=== PATIENT | female | born 1990 | race Two or more races ===

== ENCOUNTER 2017-05-05 19:28 | Inpatient (IN) | payer OTHER, BC ==
[2017-05-05 19:57] LABS: URINE HCG POC HCG NEGATIVE (Negative)
[2017-05-05 21:06] LABS: ADD MAN DIFF? NO
[2017-05-05 21:10] LABS: BILIRUBIN,URINE MODERATE (NEG); CLARITY,URINE CLEAR; COLOR,URINE YELLOW; GLUCOSE,URINE NEGATIVE (NEG); NITRITE,URINE NEGATIVE (NEG); PROTEIN,URINE 30 mg/dL (NEG-TRACE); UROBILINOGEN,URINE 0.2 mg/dL (0.2 mg/dL)
[2017-05-05 21:13] LABS: BASO % 0 % (0-3); EOS # 0.1 x10^3/uL (0.0-0.7); EOS % 1 % (0-3); HEMATOCRIT 41.5 % (36.0-47.0); HEMOGLOBIN 13.6 g/dL (12.0-15.5); LYMPH # 2.8 x10^3/uL (1.0-4.8); LYMPH % 43 % (24-48); MEAN CORPUSCULAR HEMOGLOBIN 28 pg (25-35); MEAN CORPUSCULAR HGB CONC 33 g/dL (31-37); MEAN CORPUSCULAR VOLUME 86 fL (79-100); MONO # 0.3 x10^3/uL (0.0-1.1); MONO % 5 % (0-9); NEUT # 3.4 x10^3uL (1.8-7.7); NEUT % 51 % (31-73); PLATELET COUNT 222 x10^3/uL (140-400); RED BLOOD COUNT 4.82 x10^6/uL (3.50-5.40); RED CELL DISTRIBUTION WIDTH 12.6 % (11.5-14.5); WHITE BLOOD COUNT 6.6 x10^3/uL (4.0-11.0)
[2017-05-05 21:21] LABS: ANION GAP 20 (6-14); BLOOD UREA NITROGEN 5 mg/dL (7-20); BUN/CREATININE RATIO 6 (6-20); CALCIUM 9.6 mg/dL (8.5-10.1); CARBON DIOXIDE 19 mmol/L (21-32); CHLORIDE 100 mmol/L (98-107); CREATININE 0.8 mg/dL (0.6-1.0); GFR 88.1; GLUCOSE 76 mg/dL (70-99); POTASSIUM 3.7 mmol/L (3.5-5.1); SODIUM 139 mmol/L (136-145)
[2017-05-05 21:27] LABS: ALBUMIN 4.3 g/dL (3.4-5.0); ALK PHOS 202 U/L (46-116); ALT (SGPT) 211 U/L (14-59); AST (SGOT) 97 U/L (15-37); DIRECT BILIRUBIN 0.2 mg/dL (0.0-0.2); LIPASE 156 U/L (73-393); TOTAL BILIRUBIN 0.6 mg/dL (0.2-1.0); TOTAL PROTEIN 8.8 g/dL (6.4-8.2)
[2017-05-05 21:34] LABS: NEG OBC SER NEG; POS OBC SER POS; PREG TEST PT QUAL NEGATIVE (NEG)
[2017-05-05] MEDS: IV NORMAL SALINE 1000ML BAG 1,000 ML IV (21:42)
[2017-05-05] MEDS: ONDANSETRON PF 4 MG/2 ML VIAL. IV (21:42)
[2017-05-05] MEDS: HYDROmorphone 2 MG/ML VIAL IV (21:43)
[2017-05-05 21:47] LABS: BACTERIA,URINE FEW /HPF (0-FEW); SQUAMOUS EPITHELIAL CELL,UR MOD /LPF
[2017-05-05 21:48] LABS: HYALINE CASTS, URINE MODERATE /HPF
[2017-05-05] MEDS ORDERED: MORPHINE SULFATE 2 MG/ML DISP.SYRIN. IV (22:45)
[2017-05-06] MEDS: POTASSIUM CL 20MEQ D5-0.45NACL 1,000 ML IV ×2 (00:34→11:45)
[2017-05-06] MEDS: IV NORMAL SALINE 1000ML BAG 1,000 ML IV (09:00)
[2017-05-06 09:55] LABS: ADD MAN DIFF? NO
[2017-05-06 09:57] LABS: BASO % 1 % (0-3); EOS # 0.1 x10^3/uL (0.0-0.7); EOS % 2 % (0-3); HEMATOCRIT 35.8 % (36.0-47.0); HEMOGLOBIN 11.6 g/dL (12.0-15.5); LYMPH % 53 % (24-48); MEAN CORPUSCULAR HEMOGLOBIN 28 pg (25-35); MEAN CORPUSCULAR HGB CONC 33 g/dL (31-37); MEAN CORPUSCULAR VOLUME 86 fL (79-100); MONO # 0.3 x10^3/uL (0.0-1.1); MONO % 7 % (0-9); NEUT # 1.4 x10^3uL (1.8-7.7); NEUT % 37 % (31-73); PLATELET COUNT 165 x10^3/uL (140-400); RED BLOOD COUNT 4.18 x10^6/uL (3.50-5.40); RED CELL DISTRIBUTION WIDTH 12.1 % (11.5-14.5); WHITE BLOOD COUNT 3.8 x10^3/uL (4.0-11.0)
[2017-05-06 10:25] LABS: ALBUMIN 3.4 g/dL (3.4-5.0); ALBUMIN/GLOBULIN RATIO 0.9 (1.0-1.7); ALK PHOS 153 U/L (46-116); ALT (SGPT) 145 U/L (14-59); ANION GAP 13 (6-14); AST (SGOT) 54 U/L (15-37); BLOOD UREA NITROGEN 3 mg/dL (7-20); BUN/CREATININE RATIO 4 (6-20); CALCIUM 8.7 mg/dL (8.5-10.1); CARBON DIOXIDE 22 mmol/L (21-32); CHLORIDE 106 mmol/L (98-107); CREATININE 0.7 mg/dL (0.6-1.0); GAMMA GLUTAMYL TRANSPEPTIDASE 100 U/L (5-55); GFR 102.8; GLUCOSE 100 mg/dL (70-99); POTASSIUM 4.1 mmol/L (3.5-5.1); SODIUM 141 mmol/L (136-145); TOTAL BILIRUBIN 0.6 mg/dL (0.2-1.0); TOTAL PROTEIN 7.1 g/dL (6.4-8.2)
[2017-05-06] MEDS: LEVOTHYROXINE 50 MCG TABLET PO (11:27)
[2017-05-06] MEDS: ONDANSETRON PF 4 MG/2 ML VIAL. IV ×2 (11:46→21:16)
[2017-05-06] MEDS: MORPHINE SULFATE 2 MG/ML DISP.SYRIN. IV ×3 (11:55→21:15)
[2017-05-06] MEDS: LIDO:MAALOX:DONNATAL 1:1:1 15 ML SINGLE DOSE SWSW (17:26)
[2017-05-06] MEDS: PANTOPRAZOLE IV PUSH 40 MG VIAL. IVP (17:26)
[2017-05-06] MEDS ORDERED: MAG HYDROX/ALUMINUM HYD/SIMETH 30 ML ORAL.SUSP PO (22:15)
[2017-05-06] MEDS: CALCIUM CARBONATE 500 MG TAB.CHEW PO (23:09)
[2017-05-07] MEDS: POTASSIUM CL 20MEQ D5-0.45NACL 1,000 ML IV ×3 (00:59→16:00)
[2017-05-07] MEDS: LEVOTHYROXINE 50 MCG TABLET PO (06:07)
[2017-05-07 06:33] LABS: ALBUMIN 3.1 g/dL (3.4-5.0); ALK PHOS 125 U/L (46-116); ALT (SGPT) 105 U/L (14-59); AST (SGOT) 32 U/L (15-37); DIRECT BILIRUBIN 0.2 mg/dL (0.0-0.2); TOTAL BILIRUBIN 0.4 mg/dL (0.2-1.0); TOTAL PROTEIN 6.4 g/dL (6.4-8.2)
[2017-05-07] MEDS: PANTOPRAZOLE IV PUSH 40 MG VIAL. IVP (08:50)
[2017-05-07] MEDS: CALCIUM CARBONATE 500 MG TAB.CHEW PO ×2 (09:31→21:50)
[2017-05-07] MEDS: ONDANSETRON PF 4 MG/2 ML VIAL. IV ×2 (09:32→15:41)
[2017-05-07] MEDS ORDERED: ACETAMINOPHEN 325 MG TABLET. PO (11:00)
[2017-05-07] MEDS: MORPHINE SULFATE 2 MG/ML DISP.SYRIN. IV ×3 (15:33→22:50)
[2017-05-08] MEDS: POTASSIUM CL 20MEQ D5-0.45NACL 1,000 ML IV ×3 (01:11→23:06)
[2017-05-08] MEDS: LEVOTHYROXINE 50 MCG TABLET PO (06:49)
[2017-05-08] MEDS ORDERED: fentaNYL PF VIAL 100 MCG/2 ML VIAL IV (08:00)
[2017-05-08] MEDS ORDERED: MORPHINE SULFATE 2 MG/ML DISP.SYRIN. IV (08:00)
[2017-05-08] MEDS ORDERED: HYDROmorphone 2 MG/ML VIAL IV (08:00)
[2017-05-08] MEDS ORDERED: ONDANSETRON PF 4 MG/2 ML VIAL. IV (08:00)
[2017-05-08] MEDS: PANTOPRAZOLE IV PUSH 40 MG VIAL. IVP (09:07)
[2017-05-08] MEDS ORDERED: SURGICEL HEMOSTAT 4X8 EACH. (13:08)
[2017-05-08] MEDS ORDERED: ROCURONIUM 50 MG/5 ML VIAL. (13:20)
[2017-05-08] MEDS ORDERED: PROPOFOL 20 ML IV (13:20)
[2017-05-08] MEDS ORDERED: LIDOCAINE 2% PF Vial for OR 5 ML VIAL. (13:20)
[2017-05-08] MEDS ORDERED: DEXAMETHASONE SOD PHOS 20 MG/5 ML VIAL. (13:20)
[2017-05-08] MEDS ORDERED: MIDAZOLAM HCL/PF 2 MG/2 ML VIAL. (13:21)
[2017-05-08] MEDS ORDERED: fentaNYL PF VIAL 100 MCG/2 ML VIAL ×2 (13:21→13:56)
[2017-05-08] MEDS ORDERED: ONDANSETRON PF 4 MG/2 ML VIAL. (13:21)
[2017-05-08] MEDS: IV RINGERS,LACTATED 1000ML 1,000 ML IV (13:21)
[2017-05-08] MEDS ORDERED: SCOPOLAMINE 1.5MG PATCH. TD (13:25)
[2017-05-08] MEDS: LIDOCAINE 1% PF 2 ML VIAL. ID (13:28)
[2017-05-08] MEDS: SCOPOLAMINE 1.5MG PATCH. TD (13:30)
[2017-05-08] MEDS ORDERED: FAMOTIDINE 20 MG/2 ML VIAL (14:10)
[2017-05-08] MEDS ORDERED: NEOSTIGMINE METHYLSULFATE 5 MG/5 ML SYRINGE. (14:12)
[2017-05-08] MEDS ORDERED: GLYCOPYRROLATE 1 MG/5 ML VIAL. (14:12)
[2017-05-08] MEDS: BUPIVACAINE 0.5% 50 ML VIAL. (14:22)
[2017-05-08] MEDS ORDERED: KETOROLAC 30 MG/ML INJ FOR OR. INJ (14:25)
[2017-05-08] MEDS ORDERED: oxyCODONE/APAP 5/325 1 TAB TABLET PO (15:00)
[2017-05-08] MEDS: PROCHLORPERAZINE 10 MG/2 ML VIAL. IV (15:10)
[2017-05-08] MEDS: fentaNYL PF VIAL 100 MCG/2 ML VIAL IV ×2 (15:11→15:38)
[2017-05-08 17:12] LABS: HCV ANTIBODY <0.1 s/co ratio (0.0-0.9); HEP A IGM ABDY Negative (Negative); HEP B SURFACE AG Negative (Negative)
[2017-05-08] MEDS: KETOROLAC 15 MG/ML VIAL. IV ×2 (17:58→23:05)
[2017-05-08] MEDS: oxyCODONE/APAP 5/325 1 TAB TABLET PO ×2 (18:01→23:55)
[2017-05-08] MEDS: MORPHINE SULFATE 2 MG/ML DISP.SYRIN. IV (20:56)
[2017-05-09] MEDS: PANTOPRAZOLE IV PUSH 40 MG VIAL. IVP (05:45)
[2017-05-09] MEDS: KETOROLAC 15 MG/ML VIAL. IV ×2 (05:46→12:02)
[2017-05-09] MEDS: oxyCODONE/APAP 5/325 1 TAB TABLET PO ×3 (05:46→13:04)
[2017-05-09] MEDS: LEVOTHYROXINE 50 MCG TABLET PO (05:46)
[2017-05-09 07:01] LABS: ADD MAN DIFF? NO
[2017-05-09 07:07] LABS: BASO % 0 % (0-3); EOS % 0 % (0-3); HEMATOCRIT 36.6 % (36.0-47.0); HEMOGLOBIN 11.9 g/dL (12.0-15.5); LYMPH # 1.4 x10^3/uL (1.0-4.8); LYMPH % 28 % (24-48); MEAN CORPUSCULAR HEMOGLOBIN 28 pg (25-35); MEAN CORPUSCULAR HGB CONC 32 g/dL (31-37); MEAN CORPUSCULAR VOLUME 86 fL (79-100); MONO # 0.4 x10^3/uL (0.0-1.1); MONO % 7 % (0-9); NEUT # 3.3 x10^3uL (1.8-7.7); NEUT % 64 % (31-73); PLATELET COUNT 163 x10^3/uL (140-400); RED BLOOD COUNT 4.26 x10^6/uL (3.50-5.40); RED CELL DISTRIBUTION WIDTH 12.2 % (11.5-14.5); WHITE BLOOD COUNT 5.2 x10^3/uL (4.0-11.0)
[2017-05-09 07:38] LABS: ALBUMIN 3.4 g/dL (3.4-5.0); ALBUMIN/GLOBULIN RATIO 0.9 (1.0-1.7); ALK PHOS 119 U/L (46-116); ALT (SGPT) 85 U/L (14-59); ANION GAP 9 (6-14); AST (SGOT) 37 U/L (15-37); BLOOD UREA NITROGEN 2 mg/dL (7-20); BUN/CREATININE RATIO 3 (6-20); CALCIUM 9.3 mg/dL (8.5-10.1); CARBON DIOXIDE 27 mmol/L (21-32); CHLORIDE 107 mmol/L (98-107); CREATININE 0.6 mg/dL (0.6-1.0); GFR 122.8; GLUCOSE 121 mg/dL (70-99); POTASSIUM 4.7 mmol/L (3.5-5.1); SODIUM 143 mmol/L (136-145); TOTAL BILIRUBIN 0.4 mg/dL (0.2-1.0); TOTAL PROTEIN 7.2 g/dL (6.4-8.2)
[2017-05-09] MEDS: ONDANSETRON PF 4 MG/2 ML VIAL. IV (12:02)
[2017-05-09 12:16] LABS: MITOCHONDRIAL ABDY 25.9 Units (0.0-20.0)
[2017-05-09 17:13] LABS: ANA INTERP Negative (.)
[2017-05-11] MEDS ORDERED: SCOPOLAMINE 1.5MG PATCH. TD (09:00)
== END 2017-05-09 14:57 | disposition home or self-care (01) | DRG 418 ==
LOC: ER 19:28 → 5 SOUTH 22:55 → 4 SOUTHWST 05-08 19:19
PROC: 0FT44ZZ Resection of Gallbladder, Percutaneous Endoscopic Approach (ICD-10-PCS; principal; 2017-05-08 13:55)
DX: K80.10 Calculus of gallbladder with chronic cholecystitis without obstruction (principal); E87.2 Acidosis; K76.0 Fatty (change of) liver, not elsewhere classified; E03.9 Hypothyroidism, unspecified; Z98.84 Bariatric surgery status
CPT/HCPCS: 36415; 76705; 80053; 80074; 80076; 81001; 81025; 82977; 83520; 83690; 84703; 85025; 86038; 87086; 88304; 96361; 96374; 96375; 99285; 99285-25; C9113; J0690; J0780; J1100; J1170; J1885; J2060; J2250; J2270; J2405; J2704; J2710; J3010; J3490; J7030; J7120; S0028

== ENCOUNTER 2017-06-10 14:50 | Emergency (ER) | payer OTHER, BC | END 2017-06-10 16:18 | disposition home or self-care (01) | LOC: ER 14:50 | DX: T81.4XXA Infection following a procedure, initial encounter (principal); E03.9 Hypothyroidism, unspecified; Y83.8 Other surgical procedures as the cause of abnormal reaction of the patient, or of later complication, without mention of misadventure at the time of the procedure; Y92.89 Other specified places as the place of occurrence of the external cause | CPT/HCPCS: 99283 ==